=== PATIENT | female | born 1930 | race Caucasian/White ===

== ENCOUNTER 2019-03-02 13:28 | Inpatient (IN) | payer OTHER ==
[~2019-03-02] VITALS: Ht 152.4 cm; Wt 87.1 kg
[~2019-03-02 13:28] MED LIST: ACCUNEB SO1.25 MG/1 INH; ASPIRIN325 PO; CALCIUM 600 +1 EAC1 PO; GABAPENTIN100 MG PO; HYDROCODONE-AP1 EAC6 PO; METFORMIN; METFORMIN HCL500 MG PO; NEURONTIN 300300 M1 PO; OXAYDO5 MG PO; OXYCONTIN; OXYGEN NASAL; PRAVACHOL20 MG PO; PREDNISONE 10 M10 MG PO; SPIRIVA INH; SYMMETREL; TOPROL XL25 MG PO; TRAMADOL 50 MG50 MG PO; VENTOLIN HFA 1818 GM INH; XARELTO10 MG PO
[2019-03-02 13:30] VITALS: BP 125/87
[2019-03-02 13:55] LABS: ABSOLUTE BASOPHILS 0.1 thou/uL (0.0-0.2); ABSOLUTE LYMPHOCYTES 1.3 thou/uL (0.8-5.3); ABSOLUTE MONOCYTES 0.9 thou/uL (0.0-1.2); ABSOLUTE NEUTROPHILS 7.5 thou/uL (1.6-8.1); BASOPHILS 1.4 %; EOSINOPHILS 0.3 %; HEMATOCRIT 31.1 % (37.0-47.0); LYMPHOCYTES 12.7 %; MCH 26.5 pg (26.0-34.0); MCHC 32.2 g/dL (28.0-37.0); MCV 82.2 fL (80.0-100.0); MONOCYTES 9.3 %; NUCLEATED RBCS 0 /100WBC; PLATELET COUNT* 210 thou/uL (150-400); POLYS 76.3 %; RBC 3.79 mil/uL (4.20-5.00); RDW-CV 17.1 % (10.5-14.5); WBC 9.9 thou/uL (4.0-11.0)
[2019-03-02] MEDS ORDERED: PREDNISONE 10 M10 MG PO (13:55)
[2019-03-02] MEDS ORDERED: SINGULAIR 10 MG10 M1 PO (13:55)
[2019-03-02] MEDS ORDERED: AVAPRO75 MG PO (13:55)
[2019-03-02] MEDS ORDERED: AMARYL2 M1 PO (13:56)
[2019-03-02] MEDS ORDERED: ZANAFLEX4 MG PO (13:56)
[2019-03-02 14:11] LABS: ANION GAP 8 mmol/L (7-16); BUN 31 mg/dL (7-18); CALCIUM 8.8 mg/dL (8.5-10.1); CHLORIDE 104 mmol/L (98-107); CO2 27 mmol/L (21-32); CREATININE 1.5 mg/dL (0.6-1.3); GLUCOSE 157 mg/dL (70-99); POTASSIUM 4.5 mmol/L (3.5-5.1); SODIUM 139 mmol/L (136-145)
[2019-03-02 14:22] LABS: ALBUMIN 3.5 g/dL (3.4-5.0); ALKALINE PHOSPHATASE 48 U/L (46-116); NT-PRO BRAIN NAT PEPTIDE 1452 pg/mL (<300); SGOT 19 U/L (15-37); SGPT 26 U/L (30-65); TOTAL BILIRUBIN 0.6 mg/dL (<0.1-1.0); TOTAL PROTEIN 6.8 g/dL (6.4-8.2); TROPONIN-I LEVEL <0.06 ng/mL (<0.06)
[2019-03-02 18:00] VITALS: BP 122/58
--- NOTE | 2019-03-02 18:57 | NUR ---
pt admiited from er at 1830 arrived on tele floor accompanied by er nurse on er bed. pt is aox4. shortness of breath, on 3 l nc. o2 sat 97% on 3 l nc. vss. denies pain. iv fluid infusing, however pt has wheezy sound in uupper lungs. dr notified of wheezing and nurse suggested to stop fluid. awaiting call back. steroid iv given as ordered. pt made comfortable in bed. edema +2 pitting noticed in lower extremities. sinus tachy on campus ambassador. will continue to monitor pt
[2019-03-02 19:01] VITALS: BP 128/48
[2019-03-02 20:58] VITALS: BP 136/70
[2019-03-03] VITALS: BP 128/46
[2019-03-03 04:00] VITALS: BP 137/52
[2019-03-03 05:17] LABS: CALCIUM 8.2 mg/dL (8.5-10.1); POTASSIUM 4.6 mmol/L (3.5-5.1)
--- NOTE | 2019-03-03 05:26 | NUR ---
ASSUMED CARE OF PT 03/02/19 APPROX 1930, PT REMAINED A&OX4 THROUGHOUT SHIFT, ADDMISSION ASSESSMENT COMPLETED, HOURLY ROUNDINGS COMPLETED, PT DENIED ANY PAIN THROUGHOUT SHIFT, PT REMAINED ON O2 3L NC, UA COLLECTED, FALL PRECAUTIONS IN PLACE, ACCU CHECKS COMPLETED. WILL CONTINUE TO MONITOR.
[2019-03-03 06:06] LABS: URINE BILIRUBIN NEGATIVE (Negative); URINE BLOOD NEGATIVE (Negative); URINE CLARITY CLEAR; URINE COLOR YELLOW; URINE GLUCOSE-RANDOM 1+ (Negative); URINE KETONES NEGATIVE (Negative); URINE LEUKOCYTES-REFLEX NEGATIVE (Negative); URINE NITRITE-REFLEX NEGATIVE (Negative); URINE PROTEIN NEGATIVE (Negative); URINE SPECIFIC GRAVITY 1.015 (1.005-1.030); URINE UROBILINOGEN 0.2 E.U./dl (0.2-1.0)
[2019-03-03 08:00] VITALS: BP 110/55
[2019-03-03 12:00] VITALS: BP 124/50
--- NOTE | 2019-03-03 12:45 | EKG ---
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: : 1930 Requested By: Jet Braxton Order Number: [id number] MD: Burak Smith Measurements Intervals [place] Rate: 117 P: 64 RI: 135 QRS: -6 QRSD: 90 T: 100 QT: 334 QTc: 466 Interpretive Statements Sinus tachycardia Isolated and paired ventricular premature complexes Borderline repolarization abnormality Compared to ECG 01/21/2010 11:25:10 Ventricular premature complex(es) now present Sinus rhythm no longer present Myocardial infarct finding no longer present Electronically Signed On 03-03-2019 12:45:20 CDT by Burak Smith [email or web address] <ELECTRONICALLY SIGNED> By: Burak Smith MD, FACC 03/03/19 1245 1337 1337 Burak Smith MD, FACC /EPI
[2019-03-03 16:00] VITALS: BP 126/46
--- NOTE | 2019-03-03 18:34 | NUR ---
ASSUMED PT CARE REPORT RECEIVED FROM NURSE. PT IS AOX4, ON 3 L NC. SOA WITH EXERTION. PT IS A LITTLE ANXIOUS ABOUT HER STAY HERE, STATES SHE IS FEELING WORSE. IV NS INFUSING AT 100 PER HOUR. IV ABX GIVEN ORDERED. WHEEZY WITH EXERTION BUT DIMINISHED LUNG SHOUND AT REST. GOOD APPETITE. CHOCKED OVER HER LUNCH, PT FELT BETTER AFTER COUGHING PIECE OF FOOD OUT AND SWALLOWING SOME APPE SAUCE. STATES FEELING BETTER. REMAINS ON 3 L NC. TRACING SR / STACHY ON TRAFFIC ENUMERATOR. WILL CONTINUE TO MONITOR PT
[2019-03-03 20:02] VITALS: BP 124/67
[2019-03-04] VITALS: BP 116/58
[2019-03-04 04:00] VITALS: BP 147/81
[2019-03-04 04:48] LABS: HEMATOCRIT 28.6 % (37.0-47.0); HEMOGLOBIN 8.8 gm/dL (12.0-15.0); MCH 25.2 pg (26.0-34.0); MCHC 30.9 g/dL (28.0-37.0); MCV 81.7 fL (80.0-100.0); MPV 10.8 fl. (7.2-11.1); NUCLEATED RBCS 0 /100WBC; PLATELET COUNT* 194 thou/uL (150-400); RDW-CV 17.4 % (10.5-14.5); WBC 12.9 thou/uL (4.0-11.0)
[2019-03-04 06:08] LABS: ABSOLUTE LYMPHOCYTES 0.6 thou/uL (0.8-5.3); ABSOLUTE MONOCYTES 0.4 thou/uL (0.0-1.2); ABSOLUTE NEUTROPHILS 11.9 thou/uL (1.6-8.1); OVALOCYTES 1+; PLATELET ESTIMATE ADEQUATE; SCHISTOCYTES Occasional
[2019-03-04 06:09] LABS: MICROCYTES Occasional; TEARDROPS Occasional
[2019-03-04 06:10] LABS: ANISOCYTOSIS 2+; LARGE PLATELETS FEW; TOXIC GRANULATION 1+
--- NOTE | 2019-03-04 06:10 | NUR ---
RECEIVED REPORT AND ASSUMED CARE AT 1900. VSS. CARDAIC MONITORING IN [facility]. PT REPORTS PAIN, PRN MEDICATION PER ORDERS. ASSESSMENT COMPLETED CHARTED. PT UP WITH ASSIST WITH WALKER/OXYGEN. 3L NC. BED LOCKED IN LOWEST POSITION, CALL LIGHT WITHIN REACH, BED ALARM ON. HOURLY ROUNDING COMPLETED AND ALLL NEEDS MET.
[2019-03-04 08:00] VITALS: BP 111/54
--- NOTE | 2019-03-04 11:39 | NUR ---
ASSUMED PT CARE REPORT RECEIVED FROM NURSE. 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 ON 3 L NC, LUNG SOUNDS ARE DIMINISHED. O2 SATURATION REMAINS ABOVE 95%, PT IS SOB WITH EXERTION. PT IS UP WITH ASSISTANCE TO THE CHAIR , USES A WALKER TO WALK THE HALLWAY. COMPLAINS OF PAIN IN RIGHT SHOULDER DURING AMBULATION. PERCOCET GIVEN FOR PAIN. IV ABX , STEROIDS GIVEN ORDERE.WILL CONTINUE TO MONITOR PT.
[2019-03-04 12:00] VITALS: BP 134/90
[2019-03-04 16:00] VITALS: BP 116/58
--- NOTE | 2019-03-04 18:31 | NUR ---
DURING DINER TIME PT WAS COUGHING ON HER GROUND BEEF. PT SAYS THAT SHE COUGHS THAT WAY WHENEVER SHE EATS GROUND BEEF. THIS NURSE STAYED WITH PT IN ROOM DURING COUGHING SPELL. THEN APPLE SAUCE WAS GIVEN. DIET WAS MODIFIED WITH A RESTRICTION OF GROUND BEEF. PT CURRENTLY LYING IN BED, NO MORE COUGHING. IV FLUID WAS STOPPED ORDERED. WILL CONTINUE TO MONITOR
[2019-03-04 20:00] VITALS: BP 121/44
[2019-03-05] VITALS: BP 131/47
[2019-03-05 04:00] VITALS: BP 139/70
--- NOTE | 2019-03-05 05:38 | NUR ---
PT HAS RESTED T/O NIGHT WITHOUT COMPLAINTS. PT DID HAVE SOME SOA UPON RETURNING TO BED FROM BATHROOM. WAS ABLE TO RECOVER QUICKLY ON 3L NC. TELE SHOWS SR WITH BIGEMINY. CALL LIGHT WITHIN REACH
[2019-03-05 09:00] VITALS: BP 145/60
[2019-03-05 10:12] LABS: ABSOLUTE EOSINOPHILS 0.1 thou/uL (0.0-0.7); ABSOLUTE LYMPHOCYTES 0.2 thou/uL (0.8-5.3); ABSOLUTE MONOCYTES 0.5 thou/uL (0.0-1.2); BASOPHILS 0.3 %; EOSINOPHILS 0.4 %; HEMATOCRIT 26.9 % (37.0-47.0); HEMOGLOBIN 8.5 gm/dL (12.0-15.0); LYMPHOCYTES 1.3 %; MCH 25.8 pg (26.0-34.0); MCHC 31.4 g/dL (28.0-37.0); MONOCYTES 3.7 %; MPV 10.9 fl. (7.2-11.1); NUCLEATED RBCS 0 /100WBC; PLATELET COUNT* 173 thou/uL (150-400); POLYS 94.3 %; RBC 3.29 mil/uL (4.20-5.00); RDW-CV 17.4 % (10.5-14.5); WBC 13.8 thou/uL (4.0-11.0)
[2019-03-05 10:38] LABS: ALBUMIN 3.1 g/dL (3.4-5.0); CALCIUM 9.4 mg/dL (8.5-10.1); CREATININE 1.2 mg/dL (0.6-1.3); POTASSIUM 4.6 mmol/L (3.5-5.1); TOTAL BILIRUBIN 0.6 mg/dL (<0.1-1.0); TOTAL PROTEIN 6.1 g/dL (6.4-8.2)
[2019-03-05 12:00] VITALS: BP 134/53
--- NOTE | 2019-03-05 14:07 | NUR ---
Pt is A&O. Resides at home with her . Independent, continues to drive. cooks and cleans. Supportive son. Pt has a RW. Wears home o2 continuous provided through [employer]. Pt also has a trilogy, but states that she does not use it very often. Hx of HH post hip surgery. Hx of skilled at [facility]. Goal is home at pr, no needs anticipated. Following.
[2019-03-05 16:00] VITALS: BP 119/53
--- NOTE | 2019-03-05 16:37 | 2DMMODE ---
[place] [address] 2 D/M-MODE ECHOCARDIOGRAM Name: ALEJANDRA ISLAS Room: [address] ADM IN .R#: [id number] Admission: 03/02/19 Attend Phys: Chandan Lim Discharge: Date of : 08/30/30 Date of Service: 03/05/19 1636 Report #: [id number] THIS REPORT FOR: //name// APPROVED REPORT Study performed: 03/05/2019 15:06:27 EXAM: Comprehensive 2D, Doppler, and color-flow Echocardiogram Patient Location: In-Patient Room #: [facility] Status: routine BSA: 1.79 HR: 85 bpm BP: 134/53 mmHg Rhythm: NSR Other Information Study Quality: Good Indications COPD Dyspnea 2D Dimensions IVSd: 12.28 (7-11mm) LVOT Diam: 18.36 (18-24mm) LVDd: 50.09 mm PWd: 9.56 (7-11mm) Ascending Ao: 30.46 (22-36mm) LVDs: 28.50 (25-40mm) Aortic Root: 26.10 mm Volumes Left Atrial Volume (Systole) LA ESV Index: 26.50 mL/m2 Aortic Valve AoV Peak Arvin.: 2.35 m/s AO Peak Gr.: 22.13 mmHg LVOT Max P.34 mmHg AO Mean Gr.: 13.10 mmHg LVOT Mean P.21 mmHg LVOT Max V: 1.04 m/s AO V2 VTI: 42.11 cm LVOT Mean V: 0.67 m/s KATHERINE (VTI): 1.24 cm2 LVOT V1 VTI: 19.66 cm Mitral Valve E/A Ratio: 0.95 MV Decel. Time: 136.75 [place] [address] 2 D/M-MODE ECHOCARDIOGRAM Name: ALEJANDRA ISLAS Room: [address] IN .R.#: [id number] Admission: 03/02/19 Attend Phys: Chandan Lim Discharge: Date of : 08/30/30 Date of Service: 03/05/19 1636 Report #: [id number] MV E Max Arvin.: 1.27 m/s MV PHT: 39.66 ms MVA (PHT): 5.55 cm2 TDI E/Lateral E': 9.07 Lateral E' Arvin.: 0.14 m/s Pulmonary Valve PV Peak Arvin.: 1.08 m/s PV Peak Gr.: 4.63 mmHg Tricuspid Valve RAP Estimate: 5.00 mmHg TR Peak Gr.: 51.57 mmHg RVSP: 56.00 mmHg PA Pressure: 56.00 mmHg Left Ventricle The left ventricle is normal size. There is normal LV segmental wall motion. There is normal left ventricular wall thickness. Left ventricular systolic function is normal. The left ventricular ejection fraction is within the normal range. LVEF is 60-65%. Right Ventricle The right ventricle is normal size. The right ventricular systolic function is normal. Atria The left atrium size is normal. The right atrium size is normal. Aortic Valve Mild aortic valve sclerosis. Mild aortic regurgitation. Mild aortic stenosis. Mitral Valve There is mitral annular calcification. Mild to moderate mitral regurgitation. No evidence of mitral valve stenosis. Tricuspid Valve The tricuspid valve is normal in structure. Mild tricuspid regurgitation. Moderate pulmonary hypertension. Pulmonic Valve The pulmonary valve is normal in structure. [place] [address] 2 D/M-MODE ECHOCARDIOGRAM Name: ALEJANDRA ISLAS Room: [address] IN .R.#: [id number] Admission: 03/02/19 Attend Phys: Chandan Lim Discharge: Date of : 08/30/30 Date of Service: 03/05/19 1636 Report #: [id number] Great Vessels The aortic root is normal in size. IVC is normal in size and collapses >50% with inspiration. Pericardium There is no pericardial effusion. <Conclusion> The left ventricle is normal size. There is normal left ventricular wall thickness. Left ventricular systolic function is normal. The left ventricular ejection fraction is within the normal range. LVEF is 60-65%. The right ventricle is normal size. The left atrium size is normal. Mild aortic valve sclerosis. Mild aortic regurgitation. Mild aortic stenosis. There is mitral annular calcification. Mild to moderate mitral regurgitation. No evidence of mitral valve stenosis. The tricuspid valve is normal in structure. Mild tricuspid regurgitation. Moderate pulmonary hypertension. IVC is normal in size and collapses >50% with inspiration. There is no pericardial effusion. There is normal LV segmental wall motion. <ELECTRONICALLY SIGNED> By: Constantino Harris MD, FACC 03/05/19 1636 1636 1636 Constantino Harris MD, FACC /INF
[2019-03-05 20:00] VITALS: BP 135/58
--- NOTE | 2019-03-05 20:07 | NUR ---
I ASSUMED CARE OF THE PATIENT AT 0700. SHE IS ALERT AND ORIENTED X4 AND IS UP WITH SBA OF ONE AND A WALKER. SHE IS VERY SHORT OF AIR AND HAS OXYGEN EXTENTION TUBING. BLOOD SUGARS WERE CHECKED AND MANAGED. BED IS IN THE LOW LOCKED POSITION AND CALL LIGHT IS IN REACH. HOURLY ROUNDING WAS COMPLETED AND PATIENT NEEDS WERE MET. IS AT THE BEDSIDE FOR THE MAJORITY OF THE DAY. ECHO IS SCHEDULED. WILL CONTINUE TO MONITOR. NEW IV PLACED.
[2019-03-06] VITALS: BP 133/48
[2019-03-06 04:00] VITALS: BP 137/49
--- NOTE | 2019-03-06 04:49 | NUR ---
PT SLEPT MOST OF SHIFT. ASSESSMENT DOCUMENTED. MEDS GIVEN PER E-JUL. IV PATENT. PAIN MEDS GIVEN FOR BACK PAIN WITH RELIEF. WILL CONTINUE WITH PLAN OF CARE.
[2019-03-06 05:29] LABS: CALCIUM 9.4 mg/dL (8.5-10.1); CREATININE 1.2 mg/dL (0.6-1.3); POTASSIUM 4.5 mmol/L (3.5-5.1)
[2019-03-06 07:20] VITALS: BP 131/54
--- NOTE | 2019-03-06 12:07 | NUR ---
VSS, ASSUMED CARE IN THE AM, ASSESSMENT PERFORMED AND CHARTED, FALL PRECAUTIONS IN PLACE AND CALL LIGHT IN REACH, PT IS A&O4 AND UP WITH ONE TO CHAIR, SHE IS ON 3L NC AND TRACING STESTRADA ON THE MONITOR, PT HAS CHRONIC PAIN IN HER BACK, PT GOAL IS TO SIT UP IN CHAIR WORK WITH PT/OT, AND IMPROVE ACTIVITY, WILL FOLLOW WITH PLAN OF CARE.
[2019-03-06 12:23] VITALS: BP 126/58
[2019-03-06 16:10] VITALS: BP 111/57
--- NOTE | 2019-03-06 16:18 | NUR ---
Spoke with , anticipate dc tomorrow. Pt continues to be weak and SOA when she got up.
--- NOTE | 2019-03-06 16:43 | NUR ---
I REVIEWED AND AGREE WITH MORNING ASSESSMENT. LAST BM 4 DAYS AGO. PT BLOOD SUGAR 59 AT DINNER TIME. ORANGE JUICE GIVEN WITH SUGAR, DINNER TRAYS ARRIVING NOW. NO INSULIN GIVEN. PT DENIES FEEL DIZZY OR FAINT. WILL CONTINUE TO MONITOR.
--- NOTE | 2019-03-06 17:05 | NUR ---
PT REMAINED ALERT AND ORIENTED. PT RESTING IN ROOM. FALL RISK PRECAUTIONS IN PLACE. WILL CONTINUE TO MONITOR.
[2019-03-06 20:50] VITALS: BP 141/53
[2019-03-07] VITALS (7 sets, daily range): BP systolic 92–153; BP diastolic 39–63
[2019-03-07 05:05] LABS: ABSOLUTE LYMPHOCYTES 0.4 thou/uL (0.8-5.3); ABSOLUTE MONOCYTES 0.5 thou/uL (0.0-1.2); ABSOLUTE NEUTROPHILS 12.2 thou/uL (1.6-8.1); HEMATOCRIT 27.5 % (37.0-47.0); HEMOGLOBIN 8.7 gm/dL (12.0-15.0); LYMPHOCYTES 3.1 %; MCH 25.5 pg (26.0-34.0); MCHC 31.7 g/dL (28.0-37.0); MCV 80.3 fL (80.0-100.0); MONOCYTES 3.7 %; MPV 10.7 fl. (7.2-11.1); NUCLEATED RBCS 0 /100WBC; PLATELET COUNT* 177 thou/uL (150-400); POLYS 93.2 %; RBC 3.42 mil/uL (4.20-5.00); RDW-CV 17.4 % (10.5-14.5); WBC 13.1 thou/uL (4.0-11.0)
[2019-03-07 05:23] LABS: CALCIUM 8.9 mg/dL (8.5-10.1); CREATININE 1.1 mg/dL (0.6-1.3); POTASSIUM 4.4 mmol/L (3.5-5.1)
--- NOTE | 2019-03-07 05:26 | NUR ---
PT SLEPT MOST OF SHIFT. ASSESSMENT DOCUMENTED. MEDS GIVEN PER E-MAR. NEW IV STARTED THIS SHIFT. PAIN MEDS GIVEN PER E-MAR WITH RELIEF. PT UP TO BATHROOM WITH SBA. WILL CONTINUE WITH PLAN OF CARE.
--- NOTE | 2019-03-07 08:41 | CON ---
[address] [address] CONSULTATION Name: ALEJANDRA ISLAS Room: [address] IN M.R.#: [id number] Admission: 03/02/19 Attend Phys: Jenny Chavez Discharge: Date of : 08/30/30 Report #: [id number] THIS REPORT FOR: //name// CC: Chandan Galarza HISTORY OF PRESENT ILLNESS: The patient is an 88-year-old female with past medical history that is significant for moderately severe COPD, chronic hypoxic respiratory failure secondary to above, upper lobe emphysema, status post right lower lobe resection for stage 1 non-small cell lung cancer and obesity. The patient presented to the Emergency Department with a history of worsening dyspnea over the last 1 week. She was visiting her primary care physician when she was found to have desaturation and irregular heart rhythm. The patient was taken to the Emergency Department where she was confirmed to have hypoxemia. The patient was also found to have PVCs and PACs and trigeminies. The patient was also reported a history of wheezing and chest tightness. She is maintained on albuterol rescue inhaler along with Brovana and Trilogy in addition to Singulair. She did see my partner, Dr. Malloy. She was admitted and was started on treatment for acute exacerbation of COPD. She has been on IV steroids and IV antibiotic. She reports that her dyspnea became somewhat worse during the hospital stay and she had noted that her lower limb edema is also worsening. No sick contacts, fevers or chills. She has a history of smoking 1 pack per day for 43 years. She quit smoking in 1959. PAST MEDICAL HISTORY: Positive for COPD, lung cancer, diabetes mellitus, hypertension, history of right lower lobe resection for stage 1 non-small cell lung cancer, history of colonoscopy and sections, history of colon cancer that is in remission. FAMILY HISTORY: Positive for brain tumor in her father. SOCIAL HISTORY: The patient denies alcohol or illicit [place] [address] CONSULTATION Name: ALEJANDRA ISLAS Room: [address] IN [facility]#: [id number] Admission: 03/02/19 Attend Phys: Jenny Chavez Discharge: Date of : 08/30/[birth year] Report #: [id number] has a history of smoking 1 pack per day for 43 years. She quit smoking in 9. PHYSICAL EXAMINATION: VITAL SIGNS: Temperature 36.6, respiratory rate 18, heart rate of 65, blood pressure 139/70, and saturations 93% on 3 liters nasal cannula oxygen. GENERAL: Showed an obese lady, who is not in acute distress. HEENT: Showed atraumatic head. NECK: Supple. Pupils are round, reactive to light and accommodation. No JVD, thyromegaly or cervical lymphadenopathy. NECK: No carotid bruit. CARDIOVASCULAR: Regular rate and rhythm with no murmur. LUNGS: Showed decreased air entry with prolonged expiratory phase and basilar crackles. She has end expiratory rhonchi. ABDOMEN: Soft, lax, nontender. EXTREMITIES: Lower limb examination showed 2+ edema of the lower limbs. No clubbing or cyanosis. LABORATORY DATA: As follows: CBC showed WBC count of 9.9 on admission, hemoglobin 10.0, platelets of 210. Her creatinine is 1.2. Sodium 141, potassium 4.6. Her chest x-ray on admission showed no significant infiltrate. A repeat chest x-ray showed mild cardiomegaly with perihilar prominence, which may be due to vascular prominence/interstitial infiltrate, but no focal consolidation. Her CT angiography of the chest showed no pulmonary embolism, but showed 1.8 cm left lower lobe nodule with several small calcifications within it and there is a 7 mm right upper lobe pulmonary nodule that may have some subtle calcification, although it is not definite and there is a 4 mm left lower lobe pulmonary nodule. A followup chest x-ray is recommended in 3 months. 1. Acute on chronic hypoxic respiratory failure. 2. Acute exacerbation of chronic obstructive pulmonary disease/acute bronchitis. 3. Pulmonary edema. 4. Left lower lobe lung nodule, 1.8 cm. 5. A 7 mm right upper lobe lung nodule. 6. Subpleural 4 mm left lower lobe lung nodule. 7. Acute kidney injury -- resolved. 8. Hypertension. 9. Obesity. 10. Deconditioning. PLAN: 1. The patient's presentation appears to be a combined process of acute exacerbation of chronic obstructive pulmonary disease with pulmonary edema. Her BNP is elevated. 2. I will give her a dose of Lasix. 3. Repeat chest x-ray after diuresis. 4. I will get 2D echo. [address] [address] CONSULTATION Name: ALEJANDRA ISLAS Room: [address] IN M.R.#: [id number] Admission: 03/02/19 Attend Phys: Jenny Chavez Discharge: Date of : 08/30/30 Report #: [id number] 5. I will titrate oxygen to keep saturation between 88-92%. Keep BiPAP on standby. Schedule bronchodilators. 6. IV Solu-Medrol. 7. Continue empiric antibiotic coverage with Rocephin and azithromycin. 8. The patient will need follow up on her pulmonary lung nodule given her history of lung cancer in the past. Thank you for giving us the opportunity to participate in the management of this patient. <ELECTRONICALLY SIGNED> By: Ankit Osorio MD 03/07/19 0841 1201 1235Ammagatito Osorio MD /nt
--- NOTE | 2019-03-07 11:25 | NUR ---
ASSUMED ARE OF PATIENT THIS AM AT 0730. PATIENT IS ALERT AND ORIENTED X 4. SHE C/O SOME CONTINUED BACK PAIN. TELE SHOWS SR WITH BIGEMINY/ TRIGIMENY PVCS. PATIENT IS SOA WITH ACTIVITY. PULMONARY IN TO SEE PATIENT. ORDERS WRITTEN. PATIENT C/O CONSTIPATION. DR NOTIFIED AND ORDERS WRITTEN FOR LAXATIVES. IV ANTIBIOTCS CONTINUED. PATIENT RESTING BETWEEN TRIPS TO THE BATHROOM. NO FALLS OR INJURY
--- NOTE | 2019-03-07 14:19 | NUR ---
I HAVE REVIEWED THE STUDENT'S CHARTING.
[2019-03-08] VITALS: BP 150/63
[2019-03-08 04:00] VITALS: BP 127/80
[2019-03-08 04:32] LABS: HEMATOCRIT 27.8 % (37.0-47.0); HEMOGLOBIN 8.8 gm/dL (12.0-15.0); MCH 25.5 pg (26.0-34.0); MCHC 31.6 g/dL (28.0-37.0); MCV 80.6 fL (80.0-100.0); MPV 10.4 fl. (7.2-11.1); RBC 3.45 mil/uL (4.20-5.00); RDW-CV 17.3 % (10.5-14.5); WBC 12.6 thou/uL (4.0-11.0)
[2019-03-08 04:41] LABS: ALBUMIN 3.1 g/dL (3.4-5.0); CALCIUM 9.2 mg/dL (8.5-10.1); POTASSIUM 4.5 mmol/L (3.5-5.1); TOTAL BILIRUBIN 0.6 mg/dL (<0.1-1.0); TOTAL PROTEIN 5.8 g/dL (6.4-8.2)
--- NOTE | 2019-03-08 06:10 | NUR ---
PT SLEPT MOST OF SHIFT. ASSESSMENT DOCUMENTED. MEDS GIVEN PER E-JUL. IV PATENT. PT REPORTED PAIN CONTROLLED THIS SHIFT. PT USED BSC THROUGH NIGHT. WILL CONTINUE WITH PLAN OF CARE.
[2019-03-08 07:30] VITALS: BP 121/49
[2019-03-08 11:27] VITALS: BP 121/49
[2019-03-08 11:28] VITALS: BP 121/49
--- NOTE | 2019-03-08 11:39 | NUR ---
Pt discharging to home today. HH arranged with [facility]. Faxed referral and orders. Family in room and will transport
[2019-03-08 11:47] VITALS: BP 121/49
[2019-03-08] MEDS ORDERED: KEFLEX500 M1 PO (12:38)
== END 2019-03-08 13:56 | disposition home health service (06) | DRG 871 ==
LOC: M.ERS 13:28 → M.TBA-ER 15:20 → M.2W 15:20
PROVIDERS: Emergency Medicine Emergency Medical Services; Internal Medicine; Internal Medicine Critical Care Medicine; Internal Medicine Pulmonary Disease; ADMIT Internal Medicine
DX: A41.9 Sepsis, unspecified organism (principal); J18.9 Pneumonia, unspecified organism; N17.0 Acute kidney failure with tubular necrosis; J96.21 Acute and chronic respiratory failure with hypoxia; I50.31 Acute diastolic (congestive) heart failure; E78.5 Hyperlipidemia, unspecified; E11.9 Type 2 diabetes mellitus without complications; J20.9 Acute bronchitis, unspecified; E66.9 Obesity, unspecified; I11.0 Hypertensive heart disease with heart failure; R91.1 Solitary pulmonary nodule; J43.9 Emphysema, unspecified; D64.9 Anemia, unspecified; I27.20 Pulmonary hypertension, unspecified; I34.0 Nonrheumatic mitral (valve) insufficiency; Z85.038 Personal history of other malignant neoplasm of large intestine; Z87.891 Personal history of nicotine dependence; Z85.118 Personal history of other malignant neoplasm of bronchus and lung; Z98.42 Cataract extraction status, left eye; Z98.41 Cataract extraction status, right eye; Z88.8 Allergy status to other drugs, medicaments and biological substances; Z68.37 Body mass index [BMI] 37.0-37.9, adult; Z82.49 Family history of ischemic heart disease and other diseases of the circulatory system; Z79.52 Long term (current) use of systemic steroids

== ENCOUNTER → 2019-03-21 | Outpatient (CLI) | payer OTHER ==
[~2019-03-21] MED LIST changes: +AMARYL2 M1 PO; +AVAPRO75 MG PO; +KEFLEX500 M1 PO; +SINGULAIR 10 MG10 M1 PO; +ZANAFLEX4 MG PO
== END ==
LOC: M.RAD 10:48
DX: J44.9 Chronic obstructive pulmonary disease, unspecified (principal)

== ENCOUNTER 2019-05-11 10:45 | Inpatient (IN) | payer OTHER ==
[~2019-05-11] VITALS: Ht 152.4 cm; Wt 74.9 kg
[2019-05-11 10:48] VITALS: BP 172/72
[2019-05-11 11:28] LABS: HEMATOCRIT 30.4 % (37.0-47.0); HEMOGLOBIN 9.5 gm/dL (12.0-15.0); MCH 23.9 pg (26.0-34.0); MCHC 31.2 g/dL (28.0-37.0); MCV 76.5 fL (80.0-100.0); MPV 9.5 fl. (7.2-11.1); NUCLEATED RBCS 0 /100WBC; PLATELET COUNT* 222 thou/uL (150-400); RBC 3.97 mil/uL (4.20-5.00); RDW-CV 20.3 % (10.5-14.5); WBC 10.7 thou/uL (4.0-11.0)
[2019-05-11 11:36] LABS: CALCIUM 9.5 mg/dL (8.5-10.1); CREATININE 1.7 mg/dL (0.6-1.3); POTASSIUM 3.9 mmol/L (3.5-5.1)
[2019-05-11 11:51] LABS: ALBUMIN 3.2 g/dL (3.4-5.0); MAGNESIUM 2.1 mg/dL (1.8-2.4); TOTAL BILIRUBIN 0.3 mg/dL (<0.1-1.0); TOTAL PROTEIN 6.8 g/dL (6.4-8.2)
[2019-05-11 12:01] LABS: ABSOLUTE LYMPHOCYTES 0.5 thou/uL (0.8-5.3); ABSOLUTE MONOCYTES 0.7 thou/uL (0.0-1.2); ABSOLUTE NEUTROPHILS 9.4 thou/uL (1.6-8.1); PLATELET ESTIMATE ADEQUATE
--- NOTE | 2019-05-11 15:46 | EKG ---
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 : 1930 Requested By: Jet Braxton Order Number: [id number] MD: Selvin Barillas Measurements Intervals [place] Rate: 98 P: 66 MS: 157 QRS: -8 QRSD: 95 T: 89 QT: 359 QTc: 459 Interpretive Statements Sinus rhythm septal infarct, old Borderline repolarization abnormality Compared to ECG 03/02/2019 13:37:48 Sinus tachycardia no longer present Ventricular premature complex(es) no longer present Electronically Signed On 05-11-2019 15:46:24 SPECIAL EDUCATION SECRETARY by Selvin Barillas [email or web address] <ELECTRONICALLY SIGNED> By: Selvin Barillas MD, FAC 05/11/19 1546 1144 1144 Selvin Barillas MD, [facility] /EPI
[2019-05-11 15:54] VITALS: BP 133/67
[2019-05-11 16:30] VITALS: BP 161/69
[2019-05-11 19:30] LABS: BE -3.2 mmol/L (-2 to +3); PCO2 43.6 mmHg (35.0-45.0); PO2 84.8 mmHg (75.0-100.0); pH 7.332 (7.340-7.450)
[2019-05-11 19:33] LABS: INFLUENZA A ANTIGEN Negative (Negative); INFLUENZA B ANTIGEN Negative (Negative)
[2019-05-11 20:00] VITALS: BP 168/66
[2019-05-11 23:45] VITALS: BP 146/72
[2019-05-12 03:50] VITALS: BP 130/41
[2019-05-12 04:41] LABS: HEMATOCRIT 27.1 % (37.0-47.0); HEMOGLOBIN 8.5 gm/dL (12.0-15.0); MCH 23.7 pg (26.0-34.0); MCHC 31.3 g/dL (28.0-37.0); MCV 75.9 fL (80.0-100.0); MPV 9.4 fl. (7.2-11.1); RBC 3.58 mil/uL (4.20-5.00); RDW-CV 20.6 % (10.5-14.5); WBC 4.8 thou/uL (4.0-11.0)
[2019-05-12 04:51] LABS: CALCIUM 9.2 mg/dL (8.5-10.1); CREATININE 1.2 mg/dL (0.6-1.3); POTASSIUM 4.6 mmol/L (3.5-5.1)
[2019-05-12 07:23] VITALS: BP 130/52
[2019-05-12 12:09] VITALS: BP 133/59
[2019-05-12 12:46] LABS: PCO2 40.4 mmHg (35.0-45.0); PO2 115.3 mmHg (75.0-100.0); pH 7.389 (7.340-7.450)
[2019-05-12 15:53] VITALS: BP 120/52
[2019-05-12 20:00] VITALS: BP 115/52
[2019-05-13] VITALS: BP 118/52
[2019-05-13 04:00] VITALS: BP 113/53
[2019-05-13 05:32] LABS: ABSOLUTE LYMPHOCYTES 0.4 thou/uL (0.8-5.3); ABSOLUTE MONOCYTES 0.6 thou/uL (0.0-1.2); ABSOLUTE NEUTROPHILS 10.1 thou/uL (1.6-8.1); HEMATOCRIT 28.2 % (37.0-47.0); HEMOGLOBIN 8.7 gm/dL (12.0-15.0); MCH 23.4 pg (26.0-34.0); MCHC 30.9 g/dL (28.0-37.0); MCV 75.8 fL (80.0-100.0); MONOCYTES 5.1 %; MPV 9.5 fl. (7.2-11.1); NUCLEATED RBCS 0 /100WBC; PLATELET COUNT* 238 thou/uL (150-400); POLYS 90.9 %; RBC 3.71 mil/uL (4.20-5.00); RDW-CV 20.2 % (10.5-14.5); WBC 11.1 thou/uL (4.0-11.0)
[2019-05-13 07:15] VITALS: BP 131/44
[2019-05-13 12:17] VITALS: BP 127/45
[2019-05-13 16:34] VITALS: BP 119/48
[2019-05-13 20:00] VITALS: BP 117/58
[2019-05-14] VITALS: BP 115/48
[2019-05-14 03:30] VITALS: BP 127/64
[2019-05-14 11:47] VITALS: BP 119/57
[2019-05-14 16:03] VITALS: BP 119/60
[2019-05-14 20:00] VITALS: BP 140/68
[2019-05-15] VITALS: BP 110/57
[2019-05-15 04:00] VITALS: BP 114/57
[2019-05-15 05:20] LABS: HEMATOCRIT 27.2 % (37.0-47.0); HEMOGLOBIN 8.7 gm/dL (12.0-15.0); MCH 24.3 pg (26.0-34.0); MCHC 31.9 g/dL (28.0-37.0); MCV 76.2 fL (80.0-100.0); MPV 9.1 fl. (7.2-11.1); RBC 3.57 mil/uL (4.20-5.00); RDW-CV 20.1 % (10.5-14.5); WBC 13.5 thou/uL (4.0-11.0)
[2019-05-15 05:26] LABS: CALCIUM 9.2 mg/dL (8.5-10.1); MAGNESIUM 2.1 mg/dL (1.8-2.4); POTASSIUM 4.8 mmol/L (3.5-5.1)
[2019-05-15 11:48] VITALS: BP 113/47
[2019-05-15 20:00] VITALS: BP 139/47
[2019-05-16] VITALS: BP 128/51
[2019-05-16 04:28] LABS: HEMATOCRIT 27.1 % (37.0-47.0); HEMOGLOBIN 8.5 gm/dL (12.0-15.0); MCH 23.9 pg (26.0-34.0); MCHC 31.5 g/dL (28.0-37.0); MPV 9.3 fl. (7.2-11.1); RBC 3.57 mil/uL (4.20-5.00); RDW-CV 19.8 % (10.5-14.5); WBC 13.2 thou/uL (4.0-11.0)
[2019-05-16 04:41] LABS: CALCIUM 9.3 mg/dL (8.5-10.1); CREATININE 1.2 mg/dL (0.6-1.3); POTASSIUM 5.6 mmol/L (3.5-5.1)
[2019-05-16 08:00] VITALS: BP 109/45
[2019-05-16 15:31] VITALS: BP 134/58
[2019-05-16 19:30] VITALS: BP 131/65
[2019-05-17 07:30] VITALS: BP 105/53
[2019-05-17] MEDS ORDERED: MUCINEX600 MG PO (08:47)
[2019-05-17] MEDS ORDERED: OMEPRAZOLE40 MG PO (08:47)
[2019-05-17] MEDS ORDERED: BROVANA15 MCG/2 M INH (08:47)
[2019-05-17] MEDS ORDERED: FLORASTOR250 MG PO (08:47)
[2019-05-17] MEDS ORDERED: PREDNISONE 10 M10 MG PO (08:47)
[2019-05-17] MEDS ORDERED: AUGMENTIN 875-1 EACH PO (08:47)
[2019-05-17] MEDS ORDERED: PULMICORT0.5 MG/2 M INH (08:47)
[2019-05-17 12:36] VITALS: BP 105/53
[2019-05-17 20:30] VITALS: BP 156/68
[2019-05-18 07:40] VITALS: BP 155/85
[2019-05-18 09:50] VITALS: BP 155/85
== END 2019-05-18 10:10 | disposition home health service (06) | DRG 177 ==
LOC: M.ERS 10:45 → M.2W 12:50 → M.TBA-ER 12:50 → M.2W 16:19 → M.ORTHSURG 05-16 09:59
PROVIDERS: Emergency Medicine Emergency Medical Services; Internal Medicine; ADMIT Internal Medicine
PROC: 5A09357 Assistance with Respiratory Ventilation, Less than 24 Consecutive Hours, Continuous Positive Airway Pressure (ICD-10-PCS; principal; 2019-05-15)
PROC: 5A09357 Assistance with Respiratory Ventilation, Less than 24 Consecutive Hours, Continuous Positive Airway Pressure (ICD-10-PCS; 2019-05-17)
DX: J15.6 Pneumonia due to other Gram-negative bacteria (principal); J96.21 Acute and chronic respiratory failure with hypoxia; J44.1 Chronic obstructive pulmonary disease with (acute) exacerbation; J44.0 Chronic obstructive pulmonary disease with (acute) lower respiratory infection; R65.10 Systemic inflammatory response syndrome (SIRS) of non-infectious origin without acute organ dysfunction; E44.1 Mild protein-calorie malnutrition; F11.20 Opioid dependence, uncomplicated; E78.5 Hyperlipidemia, unspecified; N18.2 Chronic kidney disease, stage 2 (mild); E66.9 Obesity, unspecified; G89.29 Other chronic pain; I12.9 Hypertensive chronic kidney disease with stage 1 through stage 4 chronic kidney disease, or unspecified chronic kidney disease; Z85.118 Personal history of other malignant neoplasm of bronchus and lung; Z98.42 Cataract extraction status, left eye; Z98.41 Cataract extraction status, right eye; Z88.8 Allergy status to other drugs, medicaments and biological substances; Z87.891 Personal history of nicotine dependence; Z82.49 Family history of ischemic heart disease and other diseases of the circulatory system; Z68.32 Body mass index [BMI] 32.0-32.9, adult; Z79.899 Other long term (current) drug therapy

== ENCOUNTER 2020-03-03 07:18 | Inpatient (IN) | payer OTHER ==
[~2020-03-03] VITALS: Ht 152.4 cm; Wt 70.8 kg
[~2020-03-03 07:18] MED LIST changes: +AUGMENTIN 875-1 EACH PO; +BROVANA15 MCG/2 M INH; +FLORASTOR250 MG PO; +MUCINEX600 MG PO; +OMEPRAZOLE40 MG PO; +PULMICORT0.5 MG/2 M INH
[2020-03-03 07:19] VITALS: BP 185/74
[2020-03-03 07:59] LABS: ABSOLUTE BASOPHILS 0.1 thou/uL (0.0-0.2); ABSOLUTE LYMPHOCYTES 1.1 thou/uL (0.8-5.3); ABSOLUTE MONOCYTES 0.8 thou/uL (0.0-1.2); ABSOLUTE NEUTROPHILS 9.9 thou/uL (1.6-8.1); BASOPHILS 0.4 %; EOSINOPHILS 0.4 %; HEMATOCRIT 35.8 % (37.0-47.0); HEMOGLOBIN 11.7 gm/dL (12.0-15.0); LYMPHOCYTES 9.3 %; MCHC 32.7 g/dL (28.0-37.0); MCV 88.6 fL (80.0-100.0); MONOCYTES 6.9 %; MPV 9.8 fl. (7.2-11.1); NUCLEATED RBCS 0 /100WBC; PLATELET COUNT* 227 thou/uL (150-400); RBC 4.04 mil/uL (4.20-5.00); RDW-CV 14.1 % (10.5-14.5); WBC 11.9 thou/uL (4.0-11.0)
[2020-03-03 08:05] LABS: CALCIUM 9.4 mg/dL (8.5-10.1); CREATININE 1.2 mg/dL (0.6-1.3); POTASSIUM 4.4 mmol/L (3.5-5.1)
[2020-03-03 08:05] LABS: URINE BILIRUBIN NEGATIVE (Negative); URINE BLOOD 2+ (Negative); URINE CLARITY CLEAR; URINE COLOR YELLOW; URINE GLUCOSE-RANDOM NEGATIVE (Negative); URINE KETONES NEGATIVE (Negative); URINE PROTEIN TRACE (Negative); URINE SPECIFIC GRAVITY 1.025 (1.005-1.030); URINE UROBILINOGEN 0.2 E.U./dl (0.2-1.0)
[2020-03-03 08:10] LABS: ALBUMIN 3.3 g/dL (3.4-5.0); TOTAL BILIRUBIN 0.9 mg/dL (<0.1-1.0)
[2020-03-03 08:16] LABS: URINE LEUKOCYTES-REFLEX 2+ (Negative); URINE NITRITE-REFLEX POSITIVE (Negative)
[2020-03-03] MEDS ORDERED: SPIRONOLACTONE25 MG PO (08:18)
[2020-03-03] MEDS ORDERED: DEXILANT60 MG PO (08:18)
[2020-03-03 08:22] LABS: BACTERIA-REFLEX >30 Many /HPF (None Seen); CASTS None Seen /LPF (None Seen); CRYSTALS None Seen /LPF (None Seen); SQUAMOUS 0-3 Few /LPF (0-3); URINE RBC 0-2 Rare /HPF (0-2); URINE WBC-REFLEX >25 Many /HPF (0-5)
[2020-03-03 14:50] VITALS: BP 179/83
[2020-03-03 15:00] VITALS: BP 168/80
[2020-03-03 20:00] VITALS: BP 140/64
[2020-03-04 00:29] VITALS: BP 172/77
[2020-03-04 04:31] VITALS: BP 171/71
[2020-03-04 05:41] LABS: HEMATOCRIT 34.8 % (37.0-47.0); HEMOGLOBIN 11.7 gm/dL (12.0-15.0); MCH 29.5 pg (26.0-34.0); MCHC 33.6 g/dL (28.0-37.0); MCV 87.9 fL (80.0-100.0); MPV 9.7 fl. (7.2-11.1); RBC 3.96 mil/uL (4.20-5.00); RDW-CV 13.9 % (10.5-14.5); WBC 9.1 thou/uL (4.0-11.0)
[2020-03-04 06:09] LABS: ALBUMIN 2.8 g/dL (3.4-5.0); CALCIUM 8.7 mg/dL (8.5-10.1); CREATININE 0.9 mg/dL (0.6-1.3); MAGNESIUM 1.6 mg/dL (1.8-2.4); POTASSIUM 4.2 mmol/L (3.5-5.1)
[2020-03-04 07:30] VITALS: BP 154/71
[2020-03-04] MEDS ORDERED: IPRAT-ALBUT 0.5-3 ML INH (08:48)
[2020-03-04 16:24] VITALS: BP 155/69
[2020-03-04 20:17] VITALS: BP 160/65
[2020-03-05 05:02] LABS: HEMATOCRIT 34.5 % (37.0-47.0); HEMOGLOBIN 11.6 gm/dL (12.0-15.0); MCH 29.4 pg (26.0-34.0); MCHC 33.6 g/dL (28.0-37.0); MCV 87.5 fL (80.0-100.0); MPV 10.2 fl. (7.2-11.1); RBC 3.94 mil/uL (4.20-5.00); RDW-CV 13.9 % (10.5-14.5); WBC 9.4 thou/uL (4.0-11.0)
[2020-03-05 05:15] LABS: CALCIUM 9.1 mg/dL (8.5-10.1); CREATININE 0.8 mg/dL (0.6-1.3); MAGNESIUM 1.6 mg/dL (1.8-2.4); POTASSIUM 3.8 mmol/L (3.5-5.1)
[2020-03-05 07:10] VITALS: BP 166/78
[2020-03-05 16:35] VITALS: BP 156/61
[2020-03-05 20:30] VITALS: BP 104/54
[2020-03-06 07:30] VITALS: BP 146/66
[2020-03-06 14:41] VITALS: BP 146/66
[2020-03-06 15:49] VITALS: BP 141/69
[2020-03-06 20:00] VITALS: BP 123/41
[2020-03-07 07:30] VITALS: BP 126/46
[2020-03-07 16:00] VITALS: BP 141/50
[2020-03-07 21:00] VITALS: BP 120/50
[2020-03-08 08:10] VITALS: BP 126/51
[2020-03-08 15:49] VITALS: BP 140/62
[2020-03-08 19:57] VITALS: BP 118/56
[2020-03-08 23:16] LABS: URINE BILIRUBIN NEGATIVE (Negative); URINE BLOOD TRACE (Negative); URINE CLARITY CLEAR; URINE COLOR YELLOW; URINE GLUCOSE-RANDOM NEGATIVE (Negative); URINE KETONES NEGATIVE (Negative); URINE LEUKOCYTES-REFLEX NEGATIVE (Negative); URINE NITRITE-REFLEX NEGATIVE (Negative); URINE PROTEIN NEGATIVE (Negative); URINE SPECIFIC GRAVITY >= 1.030 (1.005-1.030); URINE UROBILINOGEN 0.2 E.U./dl (0.2-1.0)
[2020-03-09 07:50] VITALS: BP 124/76
[2020-03-09 16:06] VITALS: BP 155/60
[2020-03-09 21:20] VITALS: BP 137/42
[2020-03-10 07:20] VITALS: BP 145/61
[2020-03-10] MEDS ORDERED: CIPRO500 M1 PO (08:53)
[2020-03-10] MEDS ORDERED: VOLTAREN GEL 1100 G1 TOP (08:53)
[2020-03-10 10:05] VITALS: BP 146/66
[2020-03-10 11:23] VITALS: BP 146/66
== END 2020-03-10 11:24 | disposition home health service (06) | DRG 690 ==
LOC: M.ERS 07:18 → M.TBA-ER 11:12 → M.2W 15:03 → M.ORTHSURG 03-04 08:38 → M.2W 03-04 08:38 → M.ORTHSURG 03-04 19:35
PROVIDERS: Personal Emergency Response Attendant; ADMIT Internal Medicine; ATTEND Internal Medicine
DX: N39.0 Urinary tract infection, site not specified (principal); J96.11 Chronic respiratory failure with hypoxia; Z16.24 Resistance to multiple antibiotics; B96.89 Other specified bacterial agents as the cause of diseases classified elsewhere; I10 Essential (primary) hypertension; E78.5 Hyperlipidemia, unspecified; R53.81 Other malaise; J44.9 Chronic obstructive pulmonary disease, unspecified; R91.8 Other nonspecific abnormal finding of lung field; Z20.828 Contact with and (suspected) exposure to other viral communicable diseases; Z85.038 Personal history of other malignant neoplasm of large intestine; Z85.118 Personal history of other malignant neoplasm of bronchus and lung; Z98.42 Cataract extraction status, left eye; Z98.41 Cataract extraction status, right eye; Z79.899 Other long term (current) drug therapy; Z88.8 Allergy status to other drugs, medicaments and biological substances; Z87.891 Personal history of nicotine dependence; Z99.81 Dependence on supplemental oxygen; Z28.21 Immunization not carried out because of patient refusal

== ENCOUNTER 2020-05-27 15:39 | Emergency (ER) | payer OTHER ==
[~2020-05-27] VITALS: Ht 152.4 cm; Wt 70.3 kg
[~2020-05-27 15:39] MED LIST changes: +CIPRO500 M1 PO; +DEXILANT60 MG PO; +IPRAT-ALBUT 0.5-3 ML INH; +SPIRONOLACTONE25 MG PO; +VOLTAREN GEL 1100 G1 TOP
[2020-05-27 16:10] LABS: HEMATOCRIT 36.9 % (37.0-47.0); HEMOGLOBIN 12.1 gm/dL (12.0-15.0); MCH 29.2 pg (26.0-34.0); MCHC 32.7 g/dL (28.0-37.0); MCV 89.4 fL (80.0-100.0); MPV 10.3 fl. (7.2-11.1); NUCLEATED RBCS 0 /100WBC; PLATELET COUNT* 188 thou/uL (150-400); RBC 4.13 mil/uL (4.20-5.00); RDW-CV 16.6 % (10.5-14.5); WBC 13.3 thou/uL (4.0-11.0)
[2020-05-27 16:21] LABS: APTT 20.8 Seconds (25.0-31.3); PROTIME 9.9 Seconds (9.20-11.50)
[2020-05-27 16:26] LABS: CALCIUM 9.6 mg/dL (8.5-10.1); CREATININE 1.4 mg/dL (0.6-1.3)
[2020-05-27 16:34] LABS: URINE BILIRUBIN NEGATIVE (Negative); URINE BLOOD NEGATIVE (Negative); URINE CLARITY CLEAR; URINE COLOR YELLOW; URINE GLUCOSE-RANDOM TRACE (Negative); URINE KETONES NEGATIVE (Negative); URINE LEUKOCYTES-REFLEX NEGATIVE (Negative); URINE NITRITE-REFLEX NEGATIVE (Negative); URINE PROTEIN NEGATIVE (Negative); URINE SPECIFIC GRAVITY 1.025 (1.005-1.030); URINE UROBILINOGEN 0.2 E.U./dl (0.2-1.0)
[2020-05-27 16:36] LABS: ABSOLUTE LYMPHOCYTES 0.9 thou/uL (0.8-5.3); ABSOLUTE MONOCYTES 0.1 thou/uL (0.0-1.2); ABSOLUTE NEUTROPHILS 12.2 thou/uL (1.6-8.1)
[2020-05-27 16:37] LABS: ALBUMIN 3.5 g/dL (3.4-5.0); ANISOCYTOSIS Occasional; PLATELET ESTIMATE ADEQUATE; TOTAL PROTEIN 6.9 g/dL (6.4-8.2)
[2020-05-27 16:48] LABS: INR < 0.9
[2020-05-27] MEDS ORDERED: AUGMENTIN 875-1 EACH PO (17:04)
--- NOTE | 2020-05-27 17:07 | EKG ---
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 : 1930 Requested By: Tavares Joseph Order Number: [id number] MD: Burak Smith Measurements Intervals [place] Rate: 98 P: 52 ID: [id number] QRS: -10 QRSD: 90 T: 101 QT: 345 QTc: 441 Interpretive Statements Sinus rhythm Premature ventricular contractions probable left atrial enlargement Anteroseptal infarct, age indeterminate, possible Nonspecific ST segment depression diffusely, consider ischemia Anterior Q waves, possibly due to LVH Compared to ECG 05/11/2019 11:44:34 Ventricular premature complex(es) now present Electronically Signed On 05-27-2020 17:07:05 TIRE SORTER by Burak Smith [email or web address] <ELECTRONICALLY SIGNED> By: Burak Smith MD, FACC 05/27/20 1707 1556 1556 Burak Smith MD, FAC /EPI
[2020-05-27 18:03] VITALS: BP 156/68
== END 2020-05-27 18:03 | disposition home or self-care (01) ==
LOC: M.ERS 15:39
PROVIDERS: Family Medicine
DX: D72.829 Elevated white blood cell count, unspecified (principal); Z20.828 Contact with and (suspected) exposure to other viral communicable diseases; R79.1 Abnormal coagulation profile